=== PATIENT | female | born 1980 | race Caucasian/White ===

== ENCOUNTER 2016-11-18 17:09 | Emergency (ER) | payer OTHER ==
[~2016-11-18] VITALS: Ht 152.4 cm; Wt 90.7 kg
[~2016-11-18 17:09] MED LIST: HUMALOG SL100 UNITS/; IBUPROFEN600 M1 PO; LANTUS INS100 UNITS/ SUBQ; SYNTHROID0.125 M1 PO; SYNTHROID0.137 MG PO; SYNTHROID0.15 MG PO; XANAX2 M1 PO
[2016-11-18 17:17] VITALS: BP 140/93
--- NOTE | 2016-11-18 17:20 | NUR ---
PATIENT TO BED 8.
--- NOTE | 2016-11-18 17:26 | NUR ---
Patient presents with c/o SOB, hx of asthma, wheezes throughout, breathing is labored, pulse ox 99% on room air at this time. Denies CP, no N/V, no loose stools, c/o headache, anxiety, and hx of chronic back pain currently has some back pain. Patient sitting up in bed, with daughter at bedside
--- NOTE | 2016-11-18 17:33 | NUR ---
Patient being evaluated by physician at bedside.
[2016-11-18] MEDS ORDERED: predniSONE 20 MG TAB PO ONE (17:40)
[2016-11-18] MEDS ORDERED: IPRATROPIUM 0.02% 0.5 MG/2.5 ML NEBU INH ONE (17:40)
[2016-11-18] MEDS ORDERED: ALBUTEROL 0.083% 2.5 MG/3 ML NEBU INH ONE ×2 (17:40→18:15)
--- NOTE | 2016-11-18 18:13 | NUR ---
Notified Dr. Brewster that patients lungs have cleared up a bit, but still has wheezes throughout after breathing treatment administration.
--- NOTE | 2016-11-18 19:13 | NUR ---
report received from wilmer finch.
--- NOTE | 2016-11-18 19:47 | NUR ---
Patient discharged with v/s stable. Written and verbal after care instructions given and explained. Patient alert, oriented and verbalized understanding of instructions. Ambulatory with steady gait. All questions addressed prior to discharge. ID band removed. Patient advised to follow up with PMD. Rx of VENTOLIN, PREDNISONE, QVAR given. Patient educated on indication of medication including possible reaction and side effects. Opportunity to ask questions provided and answered.
[2016-11-18 19:48] VITALS: BP 140/78
== END 2016-11-18 19:47 | disposition home or self-care (01) ==
LOC: MED 17:09
DX: J45.901 Unspecified asthma with (acute) exacerbation (principal); E11.9 Type 2 diabetes mellitus without complications; Z79.4 Long term (current) use of insulin
CPT/HCPCS: 82948; 94640; 99284; J7512; J7613; J7644

== ENCOUNTER 2017-01-17 00:22 | Emergency (ER) | payer OTHER ==
[~2017-01-17] VITALS: Ht 165.1 cm; Wt 90.7 kg
[~2017-01-17 00:22] MED LIST changes: +ALPR2TAB1 PO; -HUMALOG SL100 UNITS/; +HUMSLIDE; -IBUPROFEN600 M1 PO; -LANTUS INS100 UNITS/ SUBQ; +LANTUS SUBQ; +LEVO0.155 PO; -SYNTHROID0.125 M1 PO; -SYNTHROID0.137 MG PO; -SYNTHROID0.15 MG PO; -XANAX2 M1 PO
[2017-01-17 00:52] VITALS: BP 116/69
--- NOTE | 2017-01-17 02:50 | NUR ---
PATIENT TO ER BED 3
--- NOTE | 2017-01-17 02:51 | NUR ---
PATIENT PRESENTS TO ED WITH LEFT FOOT, TOE PAIN X 1 DAY 8/10 PAIN. . PT DENIES N/V/D; SKIN IS PINK/WARM/DRY; AAOX4 WITH EVEN AND STEADY GAIT; LUNGS CLEAR BL; HR EVEN AND REGULAR; PT DENIES ANY FEVER, CP, SOB, OR COUGH AT THIS TIME; PATIENT STATES PAIN OF 8/10 AT THIS TIME; VSS; PATIENT POSITIONED FOR COMFORT; HOB ELEVATED; BEDRAILS UP X2; BED DOWN. ER MD MADE AWARE OF PT STATUS.
--- NOTE | 2017-01-17 03:03 | NUR ---
Dr. Tidwell evaluating patient at bedside.
[2017-01-17] MEDS ORDERED: KETOROLAC 30 MG/ML VIAL IM ONE (03:15)
[2017-01-17] MEDS ORDERED: ACETAMINOPHEN/CODEINE 300/30MG 1 TAB PO ONE (03:15)
[2017-01-17 03:44] VITALS: BP 117/72
--- NOTE | 2017-01-17 03:44 | NUR ---
Patient discharged with v/s stable. Written and verbal after care instructions given and explained. Patient alert, oriented and verbalized understanding of instructions. Ambulatory with steady gait. All questions addressed prior to discharge. ID band removed. Patient advised to follow up with PMD. Rx of NAPROSYN 500MG TAB given. Patient educated on indication of medication including possible reaction and side effects. Opportunity to ask questions provided and answered.
== END 2017-01-17 03:44 | disposition home or self-care (01) ==
LOC: MED 00:22
PROC: 3E033GC Introduction of Other Therapeutic Substance into Peripheral Vein, Percutaneous Approach (ICD-10-PCS; principal; 2017-01-17)
DX: S90.122A Contusion of left lesser toe(s) without damage to nail, initial encounter (principal); E11.9 Type 2 diabetes mellitus without complications; Z79.4 Long term (current) use of insulin; W22.09XA Striking against other stationary object, initial encounter; Y93.89 Activity, other specified; Y92.89 Other specified places as the place of occurrence of the external cause; Y99.8 Other external cause status
CPT/HCPCS: 73660; 96372; 99284; J1885

== ENCOUNTER 2017-02-04 17:02 | Inpatient (IN) | payer OTHER ==
[~2017-02-04] VITALS: Ht 165.1 cm; Wt 92.6 kg
[2017-02-04] MEDS: BLOOD GLUCOSE MONITORING 1 DEV DEV FS SCH ×8 (08:00→22:00)
[~2017-02-04 17:02] MED LIST changes: -ALPR2TAB1 PO; +HUMALOG SL100 UNITS/; -HUMSLIDE; +IBUPROFEN600 M1 PO; +LANTUS INS100 UNITS/ SUBQ; -LANTUS SUBQ; -LEVO0.155 PO; +SYNTHROID0.125 M1 PO; +SYNTHROID0.137 MG PO; +SYNTHROID0.15 MG PO; +XANAX2 M1 PO
[2017-02-04 17:44] VITALS: BP 97/39
--- NOTE | 2017-02-04 18:46 | NUR ---
Patient to bed 06.
--- NOTE | 2017-02-04 18:51 | NUR ---
PT CAME TO ER DUE TO VOMITING STARTING THIS MORNING AND HEADACHE/DIZZINESS AND BURNING IN CHEST,PT STATES IT ALL STARTED TODAY;PAIN SCALE OF 10/10;PT TOOK MOTRIN BUT DIDN'T HELP PT;HX OF DM;ASTHMA;PT STATES SHE FEELS WEEK;DENIES SOB/F/COUGH AT THIS TIME;AAOX4;HOB ELEVATED;NEEDS ATTENDED;SAFETY MEASURES DONE;MD AT BEDSIDE.
[2017-02-04] MEDS ORDERED: KETOROLAC 30 MG/ML VIAL IVP ONE (19:10)
[2017-02-04] MEDS ORDERED: INSULIN HUMAN REGULAR 100 UNITS/ML 10 ML VIAL IVP ONE (19:10)
[2017-02-04] MEDS ORDERED: PANTOPRAZOLE 40 MG INJ VIAL IVP ONE (19:10)
[2017-02-04] MEDS ORDERED: NACL 0.9% 2,000 ML IV ONE (19:10)
--- NOTE | 2017-02-04 19:16 | NUR ---
REPORT GIVEN TO ABHIJIT WISE.
[2017-02-04] MEDS ORDERED: ONDANSETRON 4 MG/2 ML VIAL IVP ONE (19:35)
[2017-02-04] MEDS ORDERED: INSULIN LISPRO SLIDING SCALE 100 UNITS/ML VIAL SUBQ PRN (20:15)
[2017-02-04] MEDS ORDERED: POTASSIUM CHLORIDE 10 MEQ TABER PO PRN (20:15)
[2017-02-04] MEDS ORDERED: GLUCAGON 1 MG VIAL IVP PRN (20:15)
[2017-02-04] MEDS ORDERED: MORPHINE SULFATE 2 MG/ML SYR IVP ONE (20:35)
--- NOTE | 2017-02-04 20:35 | NUR ---
Pt report given to MOE LACEY. Transfer of care at this time.
--- NOTE | 2017-02-04 20:35 | NUR ---
Patient will be admitted to care of DR JACKSON. Admited to TELE 111A. Will go to rooM 111A. Belongings list completed. Report to MOE LACEY .
[2017-02-04 21:00] VITALS: BP 122/77
--- NOTE | 2017-02-04 21:00 | NUR ---
Admitted from ED, with chief complaint of ABDOMINAL PAIN, CHEST BURNING, WEAKNESS, VOMITING, GADRNER X 1D. 36 y/o ,Female, Awake, alert and Oriented, Cooperative. at bedside. Initial assessment done. Vital signs checked. Pt complaining of burning on her chest. Will notify MD. Pt asking for water to drink. Pt informed that her blood sugar will be checked every 4hrs. Pt verbalized understanding and said to check it later at 2300. Pt oriented to call light, bed, phone,television, bathroom, smoking policy, visiting hours, procedures, ID bracelet on. Belongings list checked. MRSA swab collected.
[2017-02-04] MEDS: NACL 0.9% 1,000 ML IV SCH (21:30)
[2017-02-04] MEDS ORDERED: INSULIN HUMAN REGULAR 100 UNITS in NACL 0.9% 100 ML IV SCH (21:30)
--- NOTE | 2017-02-04 21:30 | NUR ---
INFORMED DR REDDY REGARDING PT'S K LEVEL AND SHE SAID CONTINUE CHECKING THE BLOOD SUGAR AND GIVE COVERAGE. THERE'S AM LABS ORDER. ASKED HER IF SHE'S AWARE OF PT'S ABG RESULTS. DR REDDY SAID "NO". RELAYED THE ABG RESULTS AND SHE SAID PT NEEDS TO GO TO ICU AND START W/ INSULIN DRIP. WILL INFORM CHARGE NURSE AND STAFF INTERPRETER.
--- NOTE | 2017-02-04 21:40 | NUR ---
REPORT GIVEN TO ABHIJIT CASTELLANOS FROM ICU.
--- NOTE | 2017-02-04 22:00 | NUR ---
PT TRANSFERRED VIA BED TO ICU PER MD ORDER.
[2017-02-04 22:15] VITALS: BP 122/65
--- NOTE | 2017-02-04 22:15 | NUR ---
RECEIVED PT FROM TELEMETRY UNIT AWAKE ALERT AND ORIENTED.ST ON MONITOR.ON ROOM AIR.02SAT 100%.NO SOB NOTED.PIV TO RT AC G22 INTACT.INFUSING NS AT 150ML/HR ORDERED.SKIN INTACT. PT ABLE TO AMBULATE.DENIES PAIN AT THIS TIME.WILL CONTINUE TO MONITOR PT. Addendum: 02/04/17 at 2330 by Annie Comer RN BS 212 AT THIS TIME
--- NOTE | 2017-02-04 22:30 | NUR ---
PTS AT BEDSIDE.PT REFUSING INSULIN DRIP.EXPLAINED TO PT AND THE EFFECT OF REFUSING INSULIN DRIP,QUESTIONS ANSWERED.REASSURED PT THAT CEMETERY MANAGER WILL MONITOR BLOOD SUGAR Q 1HR WHEN ON DRIP,PT STILL REFUSING. PHONE CALL MADE TO DR MAKI.NOTIFIED THAT PT REFUSING DRIP.NEW ORDERS RECEIVED.CARRIED OUT.
[2017-02-04] MEDS: ALPRAZolam 0.5 MG TAB PO PRN (22:53)
[2017-02-04] MEDS ORDERED: INSULIN DETEMIR 100 UNITS/ML 10 ML VIAL SUBQ ONE (23:10)
[2017-02-04] MEDS ORDERED: INSULIN DETEMIR 100 UNITS/ML 10 ML VIAL SUBQ SCH (23:20)
[2017-02-04] MEDS ORDERED: DEXTROSE 50% 50 ML SYR IVP PRN (23:35)
[2017-02-04] MEDS: ONDANSETRON 4 MG/2 ML VIAL IVP PRN (23:42)
--- NOTE | 2017-02-04 23:45 | NUR ---
PT VOMITED WATERY CONTENT,SMALL AMT.ZOFRAN GIVEN ORDERED
[2017-02-05] VITALS (12 sets, daily range): BP systolic 102–124; BP diastolic 54–84
--- NOTE | 2017-02-05 | NUR ---
BS 306; INSULIN COVERAGE ADMINISTERED ORDERED.
[2017-02-05] MEDS: INSULIN LISPRO SLIDING SCALE 100 UNITS/ML VIAL SUBQ PRN ×3 (00:23→04:06)
[2017-02-05] MEDS: MORPHINE SULFATE 2 MG/ML SYR IVP PRN ×2 (01:26→21:02)
[2017-02-05] MEDS: BLOOD GLUCOSE MONITORING 1 DEV DEV FS SCH ×19 (02:00→23:01)
--- NOTE | 2017-02-05 02:00 | NUR ---
BS 245; INSULIN SLIDING GIVEN ORDERED.PT AWAKE, NO SOB NOTED ON ROOM AIR.PIV INTACT.NO C/O PAIN AT THIS TIME
[2017-02-05] MEDS: NACL 0.9% 1,000 ML IV SCH (03:43)
--- NOTE | 2017-02-05 04:05 | NUR ---
PT C/O NAUSEA;ZOFRAN GIVEN ORDERED.BS 195;INSULIN GIVEN ORDERED. WILL CONTINUE TO MONITOR PT
[2017-02-05] MEDS: ONDANSETRON 4 MG/2 ML VIAL IVP PRN ×5 (04:09→19:59)
--- NOTE | 2017-02-05 05:50 | NUR ---
PT UP TO TOILET.VOIDED FREELY YELLOW URINE.STEADY GAIT. NO C/O PAIN AT THIS TIME.TOLERATING ROOM AIR.NO SOB NOTED.
--- NOTE | 2017-02-05 06:00 | NUR ---
BS 128;NO INSULIN COVERAGE REQUIRED.DUE MEDS GIVEN ORDERED.NO C/O PAIN MADE.NO C/O N/V AT THIS TIME
[2017-02-05] MEDS: LEVOTHYROXINE 0.075 MG TAB PO SCH (06:04)
--- NOTE | 2017-02-05 07:00 | NUR ---
RECEIVED REPORT FROM ABHIJIT GARCIA. PT IS A/O X4, ROOM AIR. IV TO RIGHT AC #22, PATENT AND INTACT. SKIN IS INTACT. PT IS CURRENTLY SINUS TACHYCARDIA ON MONITOR. SAFETY PRECAUTION IN PLACE. BED IN LOWEST POSITION, SIDE RAILS UP. CALL LIGHT WITHIN REACH. PRESENT AT BEDSIDE. WILL CONTINUE TO MONITOR.
[2017-02-05] MEDS ORDERED: NACL 0.9% 1,000 ML IV SCH ×2 (08:00→09:35)
--- NOTE | 2017-02-05 08:09 | NUR ---
PATIENT HAS BEEN SCREENED AND CATEGORIZED HIGH NUTRITION RISK. PATIENT WILL BE SEEN WITHIN 1-2 DAYS OF ADMISSION. 02/05/17-02/06/[address]
[2017-02-05] MEDS: INSULIN DETEMIR 100 UNITS/ML 10 ML VIAL SUBQ SCH (08:26)
[2017-02-05] MEDS: ENOXAPARIN 40 MG/0.4 ML SYR SUBQ SCH (08:29)
--- NOTE | 2017-02-05 08:32 | NUR ---
PT C/O NAUSEA. ADMINISTERED ZOFRAN ORDERED PRN. PT TOLERATED ALL MEDS WELL. WILL CONTINUE TO MONITOR FOR EFFECTIVENESS.
--- NOTE | 2017-02-05 09:02 | NUR ---
ANION GAP STILL HIGH, 24. PAGED DR. CHEEMA TO UPDATE. AWAITING CALL BACK
--- NOTE | 2017-02-05 09:26 | NUR ---
PAGED DR. MONTALVO REGARDING CLARIFICATION OF ORDER. INFORMED THAT DR. ECHEVERRIA IS BOAT DRIVER. WILL AWAIT CALL BACK.
--- NOTE | 2017-02-05 09:30 | NUR ---
RECEIVED CALL BACK FROM DR. ECHEVERRIA. NEW ORDERS RECEIVED.
[2017-02-05] MEDS ORDERED: INSULIN HUMAN REGULAR 100 UNITS in NACL 0.9% 100 ML IV SCH (09:35)
[2017-02-05] MEDS ORDERED: DEXTROSE 50% 50 ML SYR IVP PRN (09:55)
[2017-02-05] MEDS ORDERED: BLOOD GLUCOSE MONITORING 1 DEV DEV FS SCH ×2 (10:00)
--- NOTE | 2017-02-05 10:33 | NUR ---
DR. ECHEVERRIA IN TO SEE PATIENT, WILL FOLLOWUP ON ORDERS.
[2017-02-05] MEDS: DEXT 5% /NACL 0.9% 1,000 ML IV SCH ×2 (11:02→21:06)
[2017-02-05] MEDS: INSULIN HUMAN REGULAR 100 UNITS in NACL 0.9% 100 ML IV SCH ×7 (11:06→18:58)
--- NOTE | 2017-02-05 11:30 | NUR ---
PAGED DR. ECHEVERRIA REGARDING LOW MAGNESIUM: 1.6. NEW ORDERS RECEIVED.
[2017-02-05] MEDS ORDERED: MAGNESIUM OXIDE 400 MG TAB PO SCH (11:45)
[2017-02-05] MEDS: ALPRAZolam 0.5 MG TAB PO PRN (12:19)
[2017-02-05] MEDS: ACETAMINOPHEN 325 MG TAB PO PRN ×2 (12:19→16:14)
--- NOTE | 2017-02-05 12:24 | NUR ---
PT C/O HEADACHE, 10/10, ACHING AND CONTINUOUS ACCOMPANIED BY NAUSEA. ADMINISTERED TYLENOL AND ZOFRAN ORDERED PRN. PT TOLERATED WELL. PRESENT AT BEDSIDE. CALL LIGHT WITHIN REACH. WILL REASSESS.
--- NOTE | 2017-02-05 12:30 | NUR ---
PT C/O ANXIETY. ADMINISTERED XANAX ORDERED PRN. PT TOLERATED WELL. WILL CONTINUE TO MONITOR
--- NOTE | 2017-02-05 14:06 | NUR ---
CM NOTE INITIAL REVIEW FAXED TO [facility] / FAX# [phone], ATTN: JABARI #[phone]
--- NOTE | 2017-02-05 14:47 | NUR ---
PT SLEEPING. AROUSABLE. NO C/O PAIN. WILL CONTINUE TO MONITOR FOR CHANGE.
--- NOTE | 2017-02-05 16:29 | NUR ---
PT C/O HEADACHE, ACHING AND CONTINUOUS, 10/10, ACCOMPANIED BY NAUSEA. ADMINISTERED TYLENOL AND ZOFRAN ORDERED PRN. PT TOLERATED WELL. WILL REASSESS.
--- NOTE | 2017-02-05 17:08 | NUR ---
PAGED DR. ECHEVERRIA ABOUT CHANGE IN PAIN MEDICATION. PT REQUESTED STRONGER PAIN MEDICATION. AWAITING CALL BACK FROM
--- NOTE | 2017-02-05 17:15 | NUR ---
RECEIVED CALLBACK FROM DR. CHEEMA. NEW ORDERS RECEIVED. WILL CONTINUE TO MONITOR
[2017-02-05] MEDS: HYDROcodone/APAP 5/325 MG 1 TAB TAB PO PRN (18:04)
--- NOTE | 2017-02-05 19:23 | NUR ---
ENDORSED CARE TO ABHIJIT MAJOR. PT IN STABLE CONDITION.
--- NOTE | 2017-02-05 19:44 | NUR ---
RECEIVED REPORT FROM JOSE LACEY AND GUILLERMO RN. PATIENT IS AWAKE, ALERT, AND RESTING IN BED WITH AT BEDSIDE. NO SIGNS OF SOB OR ACUTE DISTRESS NOTED. VITAL SIGNS ARE STABLE WITH NO REPORTS OF PAIN AT THIS TIME. BREATH SOUNDS ARE CLEAR UPON AUSCULTATION AND BOWEL SOUNDS ARE HYPOACTIVE. THERE IS A #22 IN THE RIGHT AC WITH D5NS AT 100 ML/HR AND INSULIN DRIP AT 1 UNIT/HOUR. SITE IS DRY, INTACT, AND ASYMPTOMATIC. SCDS ARE IN PLACE FOR VTE PROPHYLAXIS. EXPLAINED PLAN OF CARE TO PATIENT AND TO INCLUDE SCHEDULED MEDICATION ADMINISTRATION, VITALS, AND MONITORING. PATIENT AND VERBALIZED UNDERSTANDING. HOB AT 30 DEGREES WITH BED IN LOW POSITION. WILL CONTINUE TO MONITOR PATIENT.
--- NOTE | 2017-02-05 19:59 | NUR ---
PATIENT COMPLAINING ABOUT NAUSEA. ADMINISTERED ZOFRAN 4MG IVP PER DOCTOR'S ORDERS. TOLERATED MEDICATION ADMINISTRATION WELL WITH NO SIGNS OF SOB OR DISTRESS NOTED. PATIENT'S NEEDS MET AT THIS TIME. CALL LIGHT WITHIN REACH. WILL CONTINUE TO MONITOR PATIENT.
--- NOTE | 2017-02-05 20:18 | NUR ---
TOW DRIVER AT BEDSIDE FOR SCHEDULED LAB DRAW.
--- NOTE | 2017-02-05 21:58 | NUR ---
ROUNDED ON PATIENT. PATIENT RESTING COMFORTABLY EATING LIGHT SNACK. AT BEDSIDE. WILL CONTINUE TO MONITOR PATIENT.
--- NOTE | 2017-02-05 22:28 | NUR ---
PATIENT'S FATHER LAMBERTO AND JONE VISITING AT BEDSIDE. NO SIGNS OF DISTRESS NOTED. CONTINUE TO MONITOR.
--- NOTE | 2017-02-05 22:35 | NUR ---
PATIENT'S FATHER LAMBERTO LEFT UNIT.
--- NOTE | 2017-02-05 23:55 | NUR ---
ASSISTED PATIENT TO BATHROOM TO VOID. NO SIGNS OF SOB OR DISTRESS NOTED.
[2017-02-06] VITALS (7 sets, daily range): BP systolic 110–124; BP diastolic 58–79
--- NOTE | 2017-02-06 | NUR ---
PATIENT RESTING COMFORTABLY IN BED. EXPLAINED INDICATIONS AND BENEFITS OF SCDS FOR VTE PROPHYLAXIS. PATIENT VERBALIZED UNDERSTANDING. OFFERED TO REAPPLY SCDS, BUT PATIENT STATED SHE DID NOT WANT TO WEAR THEM AT THIS TIME AND IT WAS OK TO REAPPLY LATER. WILL CONTINUE TO MONITOR PATIENT.
[2017-02-06] MEDS: BLOOD GLUCOSE MONITORING 1 DEV DEV FS SCH ×9 (00:04→08:19)
[2017-02-06] MEDS: ONDANSETRON 4 MG/2 ML VIAL IVP PRN ×3 (00:05→10:02)
--- NOTE | 2017-02-06 00:09 | NUR ---
MEDICAL LOGISTICS SPECIALIST AT BEDSIDE FOR SCHEDULED LAB DRAW. NO SIGNS OF DISTRESS NOTED. WILL CONTINUE TO MONITOR.
--- NOTE | 2017-02-06 00:29 | NUR ---
PATIENT'S JONE LEFT UNIT.
--- NOTE | 2017-02-06 00:53 | NUR ---
PATIENT'S JONE AT BEDSIDE.
--- NOTE | 2017-02-06 01:10 | NUR ---
PATIENT C/O ANXIETY AND IS UNABLE TO REST. WILL ADMINISTER XANAX ORDERED. ENCOURAGED JONE TO LET PATIENT REST, BUT PATIENT BECAME ANXIOUS STATING "HE CAN'T LEAVE. HE HAS TO BE HERE WITH ME." CHARGE NURSE JASMIN LACEY MADE AWARE. CONTINUE TO MONITOR.
[2017-02-06] MEDS: ALPRAZolam 0.5 MG TAB PO PRN (01:13)
--- NOTE | 2017-02-06 01:15 | NUR ---
PATIENT ASKED TO HAVE SCDS APPLIED. SCDS ARE IN PLACE. NO SIGNS OF DISTRESS NOTED. CALL LIGHT WITHIN REACH. WILL CONTINUE TO MONITOR.
--- NOTE | 2017-02-06 02:30 | NUR ---
PATIENT'S JONE LEFT UNIT. PATIENT RESTING COMFORTABLY IN BED WITH NO SIGNS OF DISTRESS OR SOB NOTED. HOB AT 30 DEGREES WITH BED IN LOWEST POSITION. CALL LIGHT WITHIN REACH. WILL CONTINUE TO MONITOR PATIENT.
--- NOTE | 2017-02-06 04:00 | NUR ---
HEAVY EQUIPMENT SUPERVISOR AT BEDSIDE FOR SCHEDULED LAB DRAW.
[2017-02-06] MEDS: MORPHINE SULFATE 2 MG/ML SYR IVP PRN (04:31)
--- NOTE | 2017-02-06 04:45 | NUR ---
PATIENT REQUESTED SNACK. PROVIDED PATIENT WITH 1 CUP OF VANILLA PUDDING, 1 PACKET OF NAYE CRACKERS, AND 1 BOX OF APPLE JUICE. TOLERATED WELL. PATIENT'S NEEDS MET AT THIS TIME. CALL LIGHT WITHIN REACH. CONTINUE TO MONITOR.
[2017-02-06] MEDS: LEVOTHYROXINE 0.075 MG TAB PO SCH (05:53)
--- NOTE | 2017-02-06 05:56 | NUR ---
TOLERATED DUE MEDICATION. NO SIGNS OF SOB OR DISCOMFORT NOTED. PATIENT'S NEEDS MET AT THIS TIME. CALL LIGHT WITHIN REACH. WILL CONTINUE TO MONITOR PATIENT.
[2017-02-06] MEDS: DEXT 5% /NACL 0.9% 1,000 ML IV SCH (06:58)
--- NOTE | 2017-02-06 07:11 | NUR ---
ANION GAP AND BICARBONATE ARE WNL AND INSULIN DRIP PUT ON HOLD PER DR. ECHEVERRIA'S ADDITIONAL ORDERS. CHARGE NURSE AMANUEL LACEY AND CHARGE NURSE JASMIN ARE AWARE. PATIENT IN STABLE CONDITION. ALL NEEDS ATTENDED TO DURING SHIFT. ENDORSED CONTINUITY OF CARE TO AMANUEL LACEY.
--- NOTE | 2017-02-06 07:34 | NUR ---
RECEIVED REPORT FROM ABHIJIT MAJOR. PT IS ALERT AND ORIENTED X4, ROOM AIR. IV TO RIGHT AC #22, PATENT AND INTACT. SKIN IS INTACT. PT IS CURRENTLY SINUS RHYTHM ON MONITOR. SAFETY PRECAUTION IN PLACE. BED IN LOWEST POSITION, SIDE RAILS UP. CALL LIGHT WITHIN REACH. WILL CONTINUE TO MONITOR.
[2017-02-06] MEDS ORDERED: ALPRAZolam 0.5 MG TAB PO PRN (08:09)
--- NOTE | 2017-02-06 08:15 | NUR ---
PAGED DR. CHEEMA REGARDING BG AND INSULIN. AWAITING CALL BACK
--- NOTE | 2017-02-06 08:30 | NUR ---
CALL BACK RECEIVED FROM DR. ECHEVERRIA. NEW ORDERS RECEIVED.
[2017-02-06] MEDS ORDERED: NACL 0.9% 1,000 ML IV SCH ×2 (08:35→08:50)
[2017-02-06] MEDS ORDERED: INSULIN LISPRO SLIDING SCALE 100 UNITS/ML VIAL SUBQ PRN (08:50)
[2017-02-06] MEDS ORDERED: DEXTROSE 50% 50 ML SYR IVP PRN (08:50)
[2017-02-06] MEDS: ENOXAPARIN 40 MG/0.4 ML SYR SUBQ SCH (09:20)
[2017-02-06] MEDS: INSULIN DETEMIR 100 UNITS/ML 10 ML VIAL SUBQ SCH (09:24)
--- NOTE | 2017-02-06 10:00 | NUR ---
BLOOD NOTED AT IV SITE. IV D/C AND REPLACED ONTO LEFT FOREARM. INTACT AND PATENT.
--- NOTE | 2017-02-06 10:20 | NUR ---
CALL FROM LAB RECEIVED. POSITIVE FOR MRSA IN NARES. HOUSE PROTOCOL INITIATED. PT EDUCATION GIVEN
[2017-02-06] MEDS ORDERED: BLOOD GLUCOSE MONITORING 1 DEV DEV FS SCH (11:30)
[2017-02-06] MEDS: HYDROcodone/APAP 5/325 MG 1 TAB TAB PO PRN (11:47)
--- NOTE | 2017-02-06 11:47 | NUR ---
ORDERS RECEIVED FROM DR. ECHEVERRIA TO DISCHARGE PT HOME WITH PRESCRIPTION OF ORAL ABX
[2017-02-06] MEDS ORDERED: KEFLEX250 MG PO ×2 (12:41→12:44)
[2017-02-06] MEDS ORDERED: BACTROBAN 2%20 MG/GM NS (12:48)
[2017-02-06] MEDS ORDERED: CHLORHEXIDINE1 EACH TP (12:52)
[2017-02-06] MEDS ORDERED: MUPIROCIN 2% OINT 22 GM TUBE TP SCH (13:00)
[2017-02-06] MEDS ORDERED: CHLORHEXADINE GLUC 2% CLOTH TP SCH (13:00)
--- NOTE | 2017-02-06 13:38 | NUR ---
02/06/17 RD INITIAL ASSESSMENT COMPLETED PLEASE REFER TO NUTRITION ASSESSMENT UNDER CARE ACTIVITY FOR ESTIMATED NUTRITIONAL NEEDS. RD RECOMMENDATIONS: 1. CONTINUE ON CCHO 60 GM DIET TOLERATED. 2. ENCOURAGE INCREASED PO INTAKE. 3. RD PROVIDED DM DIET EDUCATION. 4. RD WILL F/U 3-5 DAYS; MODERATE RISK. BERNARD MILAN RD
--- NOTE | 2017-02-06 13:53 | NUR ---
CM NOTE CONCURRENT REVIEW FAXED TO [facility] / FAX# [phone], ATTN: JABARI #[phone]
--- NOTE | 2017-02-06 14:15 | NUR ---
PT DISCHARGED WITH FAMILY AT 1415. A/O X4. PERIPHERAL IV DISCONTINUED. NO C/O PAIN OR DISCOMFORT. NO S/SX OF ACUTE DISTRESS NOTED. DISCHARGE INSTRUCTION GIVEN TO PT AND . PT AND VERBALIZE UNDERSTANDING. INSTRUCTION GIVEN FOR BACTROBAN AND CHLORHEXIDINE WIPES. PT AND VERBALIZE UNDERSTANDING. WALKED WITH PT AND FAMILY TO LOBBY. PT HAS STEADY GAIT. ALL PERSONAL BELONGINGS WITH PT. PT IN STABLE CONDITION.
--- NOTE | 2017-02-10 07:24 | NUR ---
PATIENT'S BLOOD SUGAR IS 142, NOT 1472, ON 02/06/17 AT 06:53. UNABLE TO EDIT IN eMAR. PUNCH FINISHER JAZMINE AND PHARMACIST HAIM ARE AWARE. CHARGE NURSE AMANUEL RN IS AWARE.
== END 2017-02-06 14:20 | disposition home or self-care (01) | DRG 420 ==
LOC: MED 17:02 → MTU 20:19 → MIC 21:57
PROVIDERS: ADMIT Hospitalist; ATTEND Hospitalist
DX: E13.10 Other specified diabetes mellitus with ketoacidosis without coma (principal); N39.0 Urinary tract infection, site not specified; E87.5 Hyperkalemia; Z79.4 Long term (current) use of insulin

== ENCOUNTER 2017-02-12 02:16 | Emergency (ER) | payer OTHER ==
[~2017-02-12] VITALS: Ht 165.1 cm; Wt 92.5 kg
[~2017-02-12 02:16] MED LIST changes: +BACTROBAN 2%20 MG/GM NS; +CHLORHEXIDINE1 EACH TP; +KEFLEX250 MG PO
[2017-02-12 02:28] VITALS: BP 138/72
--- NOTE | 2017-02-12 02:36 | NUR ---
PT TAKEN TO BED 5
--- NOTE | 2017-02-12 02:36 | NUR ---
Dr. Brewster evaluating patient at bedside.
--- NOTE | 2017-02-12 02:47 | NUR ---
36Y F BIB FAMILY C/O OF LT ARM PAIN. WAS D/C FROM THIS FACILTY 02/06/17. NO DISTRESS NOTED. CLAIMS PAIN IS 8/10 IN SCALE.
--- NOTE | 2017-02-12 02:51 | NUR ---
Patient discharged with v/s stable. Written and verbal after care instructions given and explained. Patient verbalized understanding. Ambulatory with steady gait. All questions addressed prior to discharge. Advised to follow up with PMD.
[2017-02-12 02:52] VITALS: BP 138/72
== END 2017-02-12 02:51 | disposition home or self-care (01) ==
LOC: MED 02:16
DX: I80.8 Phlebitis and thrombophlebitis of other sites (principal); E11.9 Type 2 diabetes mellitus without complications; E03.9 Hypothyroidism, unspecified

== ENCOUNTER 2017-06-09 18:18 | Emergency (ER) | payer SELFPAY ==
[~2017-06-09 18:18] MED LIST changes: +ALPR2TAB1 PO; +BACTO NS; -BACTROBAN 2%20 MG/GM NS; +CEPH250C16 PO; +CHLO1TOW TP; -CHLORHEXIDINE1 EACH TP; -HUMALOG SL100 UNITS/; +HUMSLIDE; -IBUPROFEN600 M1 PO; -KEFLEX250 MG PO; -LANTUS INS100 UNITS/ SUBQ; +LANTUS SUBQ; +LEVO0.155 PO; -SYNTHROID0.125 M1 PO; -SYNTHROID0.137 MG PO; -SYNTHROID0.15 MG PO; -XANAX2 M1 PO
== END 2017-06-09 18:20 | disposition left against medical advice (07) ==
LOC: MED 18:18
DX: Z53.21 Procedure and treatment not carried out due to patient leaving prior to being seen by health care provider (principal)

== ENCOUNTER 2017-06-09 19:45 | Emergency (ER) | payer OTHER ==
[~2017-06-09] VITALS: Ht 165.1 cm; Wt 90.7 kg
[2017-06-09 19:48] VITALS: BP 124/60
--- NOTE | 2017-06-09 20:18 | NUR ---
PT RETURN FROM XRAY TO LOBBY
--- NOTE | 2017-06-09 21:51 | NUR ---
PT TAKEN TO BED 3
--- NOTE | 2017-06-09 21:54 | NUR ---
36 Y/O F W/C/O DIFFICULTY BREATHING X 10 DAYS. PT STATES WAS SEEN BY [place] WITH ANTIBIOTICS. PT STATES HIS COUGH GETTING WORSE C/O BODY ACHES, AND HEADACHES, DENIES NIGHT SWEATS OR BLOOD IN SPUTUM.SLIGHTLY BILATERAL WHEEZEES NOTED, O2 SAT 99 % RA. PT ALSO STATES HAS GENERAL WEAKNESS, MUSCLE RELAXANT GIVEN BY MOTHER TODAY IN MORNING FOR THIS C/O. HX. ASTHMA.ER MD MADE AWARE.
[2017-06-09] MEDS ORDERED: ALBUTEROL SULFATE/IPRATROPIU 3 ML SOL IH ONE (22:10)
--- NOTE | 2017-06-09 22:21 | NUR ---
RT AT BEDSIDE ADMINISTERING BREATHING [place].
--- NOTE | 2017-06-09 22:28 | NUR ---
Dr. Tidwell evaluating patient at bedside.
[2017-06-09] MEDS ORDERED: ACETAMIN/CODEINE 120/12MG-5ML 5 ML UDC PO ONE (22:35)
[2017-06-09] MEDS ORDERED: predniSONE 20 MG TAB PO ONE (22:35)
[2017-06-09 23:10] VITALS: BP 92/62
--- NOTE | 2017-06-09 23:10 | NUR ---
Patient discharged with v/s stable. Written and verbal after care instructions given and explained. Patient alert, oriented and verbalized understanding of instructions. Ambulatory with steady gait. All questions addressed prior to discharge. ID band removed. Patient advised to follow up with PMD. Rx of [place], Prednisone, and Albuterol inhaler given. Patient educated on indication of medication including possible reaction and side effects. Opportunity to ask questions provided and answered.
== END 2017-06-09 23:10 | disposition home or self-care (01) ==
LOC: MED 19:45
DX: J20.9 Acute bronchitis, unspecified (principal); J45.901 Unspecified asthma with (acute) exacerbation; E11.9 Type 2 diabetes mellitus without complications
CPT/HCPCS: 71010; 94640; 99283; J7512; J7620

== ENCOUNTER 2017-09-24 16:02 | Emergency (ER) | payer OTHER ==
[~2017-09-24] VITALS: Ht 165.1 cm; Wt 93.4 kg
[2017-09-24 16:07] VITALS: BP 105/68
[2017-09-24] MEDS ORDERED: NACL 0.9% 500 ML IV ONE (16:29)
[2017-09-24] MEDS ORDERED: PANTOPRAZOLE 40 MG INJ VIAL IVP ONE (16:30)
[2017-09-24] MEDS ORDERED: ONDANSETRON 4 MG/2 ML VIAL IVP ONE (16:30)
--- NOTE | 2017-09-24 16:40 | NUR ---
36 F BIB SELF W/C/O HIGH BLOOD SUGAR >500 WITH N/V; PT STS SHE TOOK 30 UNITS OF INSULIN IN FLIGHT REFUELING CRAFTSMAN DUE TO "HIGH BLOOD SUGAR READING AT HOME"; PT APPEARS ANXIOUS AND RESTLESS; PT IS AOX4, WITH STEADY GAIT; RR ARE EVEN AND UNLABORED; ER MD AWARE OF PT STATUS; NAD; WILL CONTINUE TO MONTIOR.
[2017-09-24 16:46] LABS: BASOPHILS # (AUTO) 0.3 K/uL (0.00-0.22); BASOPHILS % (AUTO) 3.8 % (0.0-2.0); EOSINOPHILS # (AUTO) 0.3 K/uL (0-0.4); HEMATOCRIT 36.7 % (36-48); HEMOGLOBIN 11.6 g/dL (12.0-16.0); LYMPHOCYTES # (AUTO) 1.4 K/uL (2.5-16.5); LYMPHOCYTES % (AUTO) 20.4 % (20.5-51.1); MEAN CORPUSCULAR HEMOGLOBIN 26 pg (27-31); MEAN CORPUSCULAR HGB CONC 32 g/dL (33-37); MEAN CORPUSCULAR VOLUME 82 fL (80-94); MONOCYTES # (AUTO) 0.3 K/uL (0.8-1.0); MONOCYTES % (AUTO) 4.9 % (1.7-9.3); NEUTROPHILS # (AUTO) 4.7 K/uL (1.8-7.7); NEUTROPHILS % (AUTO) 66.9 % (42.2-75.2); PLATELET COUNT (AUTO) 218 K/uL (140-450); RED BLOOD CELL COUNT(AUTO) 4.49 MIL/uL (4.20-5.40); RED CELL DISTRIBUTION WIDTH 13.6 % (11.6-13.7)
[2017-09-24 17:06] LABS: ANION GAP 8.8 (8-16); CARBON DIOXIDE 27.9 mmol/L (21-32); CHLORIDE 107 mmol/L (98-107); CREATININE 0.7 mg/dL (0.6-1.3); GFR ARICAN-AMERICAN 123 mL/min (>90); GLUCOSE 136 mg/dL (74-106); POTASSIUM 3.7 mmol/L (3.5-5.1); SODIUM SERUM 140 mmol/L (136-145); UREA NITROGEN, BLOOD 14 mg/dL (7-18)
[2017-09-24 17:08] LABS: ACETONE, SERUM NEGATIVE (NEGATIVE)
[2017-09-24 17:11] LABS: ALBUMIN 3.1 g/dL (3.4-5.0); ASPARTATE AMINOTRANSFERASE 8 U/L (15-37); TOTAL BILIRUBIN 0.2 mg/dL (0.0-1.0)
[2017-09-24 17:57] VITALS: BP 116/69
--- NOTE | 2017-09-24 17:57 | NUR ---
Patient discharged with v/s stable. Written and verbal after care instructions given and explained. Patient alert, oriented and verbalized understanding of instructions. Ambulatory with steady gait. All questions addressed prior to discharge. ID band removed. Patient advised to follow up with PMD. Rx of OMIPRAZOLE & LEGLAN given. Patient educated on indication of medication including possible reaction and side effects. Opportunity to ask questions provided and answered.
== END 2017-09-24 17:57 | disposition home or self-care (01) ==
LOC: MED 16:02
DX: Z76.0 Encounter for issue of repeat prescription (principal); E11.9 Type 2 diabetes mellitus without complications; J45.909 Unspecified asthma, uncomplicated; Z79.4 Long term (current) use of insulin; Z79.899 Other long term (current) drug therapy
CPT/HCPCS: 36415; 80053; 82009; 82948; 85025; 96361; 96374; 96375; 99284; C9113; J2405; J7030

== ENCOUNTER 2017-10-15 20:44 | Emergency (ER) | payer OTHER ==
[~2017-10-15] VITALS: Ht 165.1 cm; Wt 100.8 kg
[2017-10-15 21:03] VITALS: BP 119/68
--- NOTE | 2017-10-16 00:55 | NUR ---
PT AMB TO ER BED 11
--- NOTE | 2017-10-16 01:05 | NUR ---
36 Y/O F W/C/O ACID REFLUX, HEADACHES, NAUSEATED X 3 DAYS. MED HX DM, ACID REFLEX, ASTHMA, HYPOTHYROID. ER MD MADE AWARE.
--- NOTE | 2017-10-16 01:10 | NUR ---
GONZALEZ MOYER AT BEDSIDE EVALUATING PT.
[2017-10-16] MEDS ORDERED: PANTOPRAZOLE 40 MG INJ VIAL IVP ONE (01:15)
[2017-10-16 01:30] LABS: BASOPHILS # (AUTO) 0.3 K/uL (0.00-0.22); BASOPHILS % (AUTO) 4.6 % (0.0-2.0); EOSINOPHILS # (AUTO) 0.5 K/uL (0-0.4); EOSINOPHILS % (AUTO) 7.4 % (0.0-4.0); HEMATOCRIT 36.7 % (36-48); HEMOGLOBIN 11.5 g/dL (12.0-16.0); LYMPHOCYTES # (AUTO) 2.3 K/uL (2.5-16.5); LYMPHOCYTES % (AUTO) 32.3 % (20.5-51.1); MEAN CORPUSCULAR HEMOGLOBIN 25 pg (27-31); MEAN CORPUSCULAR HGB CONC 31 g/dL (33-37); MEAN CORPUSCULAR VOLUME 81 fL (80-94); MONOCYTES # (AUTO) 0.4 K/uL (0.8-1.0); MONOCYTES % (AUTO) 5.9 % (1.7-9.3); NEUTROPHILS # (AUTO) 3.7 K/uL (1.8-7.7); NEUTROPHILS % (AUTO) 49.8 % (42.2-75.2); PLATELET COUNT (AUTO) 247 K/uL (140-450); RED BLOOD CELL COUNT(AUTO) 4.55 MIL/uL (4.20-5.40); RED CELL DISTRIBUTION WIDTH 14.5 % (11.6-13.7); WHITE BLOOD COUNT (AUTO) 7.2 K/uL (4.8-10.8)
[2017-10-16 01:37] LABS: APPEARANCE,URINE CLEAR (CLEAR); BILIRUBIN,URINE NEGATIVE (NEGATIVE); BLOOD, URINE NEGATIVE (NEGATIVE); COLOR,URINE YELLOW (YELLOW); LEUKOCYTE ESTERASE ,URINE NEGATIVE (NEGATIVE); NITRITE, URINE POSITIVE (NEGATIVE); UGLUCOSE NEGATIVE (NEGATIVE)
[2017-10-16 01:40] LABS: ACETONE, SERUM NEGATIVE (NEGATIVE)
[2017-10-16 01:41] LABS: ANION GAP 7.3 (8-16); CARBON DIOXIDE 29.7 mmol/L (21-32); CHLORIDE 105 mmol/L (98-107); CREATININE 0.6 mg/dL (0.6-1.3); GFR ARICAN-AMERICAN 147 mL/min (>90); GLUCOSE 158 mg/dL (74-106); SODIUM SERUM 138 mmol/L (136-145); UREA NITROGEN, BLOOD 12 mg/dL (7-18)
[2017-10-16 01:47] LABS: ALBUMIN 3.3 g/dL (3.4-5.0); ASPARTATE AMINOTRANSFERASE 15 U/L (15-37); LIPASE 142 U/L (73-393); TOTAL BILIRUBIN 0.1 mg/dL (0.0-1.0)
[2017-10-16 01:51] LABS: RBC,URINE 0-5 (RARE) /HPF (0-5); WBC,URINE 0-5 (RARE) /HPF (0-5)
[2017-10-16 02:23] VITALS: BP 119/75
--- NOTE | 2017-10-16 02:23 | NUR ---
Patient discharged with v/s stable. Written and verbal after care instructions given and explained. Patient alert, oriented and verbalized understanding of instructions. Ambulatory with steady gait. All questions addressed prior to discharge. ID band removed. Patient advised to follow up with PMD IN 2-3 DAYS. Rx of CIPROFLOxacin, zofran, omeprazole, and xanax given. Patient educated on indication of medication including possible reaction and side effects. Opportunity to ask questions provided and answered.
== END 2017-10-16 02:33 | disposition home or self-care (01) ==
LOC: MED 20:44
DX: K21.9 Gastro-esophageal reflux disease without esophagitis (principal); N39.0 Urinary tract infection, site not specified; J45.909 Unspecified asthma, uncomplicated; E11.9 Type 2 diabetes mellitus without complications
CPT/HCPCS: 36415; 80053; 81001; 82009; 83690; 85025; 96374; 99284; C9113

== ENCOUNTER 2018-03-18 23:35 | Emergency (ER) | payer OTHER ==
[~2018-03-18] VITALS: Ht 165.1 cm; Wt 80.3 kg
[2018-03-18 23:44] VITALS: BP 114/62
--- NOTE | 2018-03-18 23:48 | NUR ---
TO LOBBY, A/W BED, VSJose , WILTON, ERMRoshan NOTED
--- NOTE | 2018-03-19 02:15 | NUR ---
PATIENT PRESENTS TO ED WITH LEFT WRIST PAIN 8/10 X1 WK. PT STATES NO TRAUMA BUT HAS SEVERE PAIN. HOME MEDICATIONS NOT RELIVING PAIN. DENIES N/V/D; SKIN IS PINK/WARM/DRY; AAOX4 WITH EVEN AND STEADY GAIT; LUNGS CLEAR BL; HR EVEN AND REGULAR; PT DENIES ANY FEVER, CP, SOB, OR COUGH AT THIS TIME; PATIENT STATES PAIN OF 8/10 AT THIS TIME; VSS; PATIENT POSITIONED FOR COMFORT; HOB ELEVATED; BEDRAILS UP X2; BED DOWN. ER MD MADE AWARE OF PT STATUS. CONTINUE TO MONIOTOR.
--- NOTE | 2018-03-19 02:15 | NUR ---
PT TO ER BED 1
[2018-03-19] MEDS ORDERED: CYCLOBENZAPRINE 10 MG TAB PO ONE (03:35)
[2018-03-19] MEDS ORDERED: KETOROLAC 30 MG/ML VIAL IM ONE (03:35)
--- NOTE | 2018-03-19 03:40 | NUR ---
PT REFUSED FLEXERIL D/T TAKING ATIVAL EARLIER AND DID NOT FEEL COMFORTABLE. MEDICATION RETURNED TO PIX[facility]. DR SMITH INFORMED. VSS. CONTINUE TO MONITOR.
[2018-03-19 03:57] VITALS: BP 114/62
--- NOTE | 2018-03-19 03:57 | NUR ---
Patient discharged with v/s stable. Written and verbal after care instructions given and explained. Patient alert, oriented and verbalized understanding of instructions. Ambulatory with steady gait. All questions addressed prior to discharge. ID band removed. Patient advised to follow up with PMD. Rx of NORCO, FLEXERIL, IBUPROFEN given. Patient educated on indication of medication including possible reaction and side effects. Opportunity to ask questions provided and answered.
== END 2018-03-19 03:57 | disposition home or self-care (01) ==
LOC: MED 23:35
DX: M25.532 Pain in left wrist (principal); M54.5 Low back pain; M54.2 Cervicalgia; J45.909 Unspecified asthma, uncomplicated; E07.9 Disorder of thyroid, unspecified; Z79.899 Other long term (current) drug therapy; Z79.4 Long term (current) use of insulin
CPT/HCPCS: 29125; 72040; 72100; 73110; 96372; 99284; J1885

== ENCOUNTER 2018-05-03 17:09 | Emergency (ER) | payer OTHER ==
[~2018-05-03] VITALS: Ht 165.1 cm; Wt 74.6 kg
[2018-05-03 17:25] VITALS: BP 120/88
--- NOTE | 2018-05-03 17:30 | NUR ---
PT AMBULATES TO BED 4, REPORT GIVEN TO ABHIJIT OTERO
--- NOTE | 2018-05-03 17:30 | NUR ---
37O F TO ER FOR MED REFILL OF SYNTHROID. PT DENIES ANY OTHER MEDICAL C/O. AT THIS TIME. STATES BEING OUT OF MEDICATION FOR 2 DAYS
--- NOTE | 2018-05-03 18:02 | NUR ---
CHENCHO Lange evaluating patient at bedside.
[2018-05-03 18:14] VITALS: BP 128/89
--- NOTE | 2018-05-03 18:15 | NUR ---
Patient discharged with v/s stable. Written and verbal after care instructions given and explained. Patient alert, oriented and verbalized understanding of instructions. Ambulatory with steady gait. All questions addressed prior to discharge. ID band removed. Patient advised to follow up with PMD. Rx of SYNTHROID 175 MCG given. Patient educated on indication of medication including possible reaction and side effects. Opportunity to ask questions provided and answered.
== END 2018-05-03 18:15 | disposition home or self-care (01) ==
LOC: MED 17:09
DX: E03.9 Hypothyroidism, unspecified (principal); Z76.0 Encounter for issue of repeat prescription
CPT/HCPCS: 99283

== ENCOUNTER 2018-06-24 22:27 | Emergency (ER) | payer OTHER ==
[~2018-06-24] VITALS: Ht 165.1 cm; Wt 71.4 kg
[2018-06-24 22:30] VITALS: BP 127/87
--- NOTE | 2018-06-24 23:00 | NUR ---
37/F CAME IN ED, C/O L BIG TOE PAIN, X1 WEEK. PT REPORTS HAVING A PART OF INGROWN NAIL REMOVED IN A NAIL SALON LAST WEEK. L BIG TOE REDNESS AND SWELLING NOTED, TENDER TO TOUCH. +CMS. HX DM TYPE 1, ASTHMA, THYROID, ANXIETY
[2018-06-25] MEDS ORDERED: KETOROLAC 60 MG/2 ML VIAL IM ONE (00:25)
[2018-06-25] MEDS ORDERED: LORazepam 1 MG TAB PO ONE (00:25)
[2018-06-25 00:59] VITALS: BP 101/42
--- NOTE | 2018-06-25 01:00 | NUR ---
DC Patient discharged with v/s stable. Written and verbal after care instructions given and explained. Patient alert, oriented and verbalized understanding of instructions. Ambulatory with steady gait. All questions addressed prior to discharge. ID band removed. Patient advised to follow up with PMD. Rx of ATARAX, KEFLEX, NORCO given. Patient educated on indication of medication including possible reaction and side effects. Opportunity to ask questions provided and answered.
== END 2018-06-25 00:57 | disposition home or self-care (01) ==
LOC: MED 22:27
DX: L03.032 Cellulitis of left toe (principal); J45.909 Unspecified asthma, uncomplicated; E07.9 Disorder of thyroid, unspecified; E10.8 Type 1 diabetes mellitus with unspecified complications; Z79.899 Other long term (current) drug therapy; Z79.4 Long term (current) use of insulin
CPT/HCPCS: 96372; 99283; J1885

== ENCOUNTER 2020-11-07 00:11 | Emergency (ER) | payer OTHER ==
[~2020-11-07] VITALS: Ht 165.1 cm; Wt 90.7 kg
[2020-11-07 00:25] VITALS: BP 132/82
--- NOTE | 2020-11-07 00:25 | NUR ---
TO TENT AMBULATORY
--- NOTE | 2020-11-07 00:28 | NUR ---
SEEN AND EXAMINED BY ARMIDA WITH ORDERS, CARRIED OUT
[2020-11-07] MEDS ORDERED: ALBUTEROL SULFATE/IPRATROPIU 3 ML SOL IH ONE (00:35)
--- NOTE | 2020-11-07 01:05 | NUR ---
RT AT THE TENT GIVING BREATHING TREATMENT
[2020-11-07] MEDS ORDERED: methylPREDNISolone SS 40 MG in WATER STERILE 1 ML IM ONE (01:50)
--- NOTE | 2020-11-07 01:50 | NUR ---
MEDICATED PER ERMDS ORDER, TOLERATED WELL.
[2020-11-07] MEDS ORDERED: WATER STERILE 10 ML MC ONE (01:51)
[2020-11-07] MEDS ORDERED: methylPREDNISolone SS 40 MG/ML VIAL ONE (01:51)
--- NOTE | 2020-11-07 01:55 | NUR ---
RESULT BACK AND NOTED BY ERMD AND FOR D/C
[2020-11-07 02:28] VITALS: BP 119/79
--- NOTE | 2020-11-07 02:28 | NUR ---
Patient discharged with v/s stable. Written and verbal after care instructions given and explained. Patient alert, oriented and verbalized understanding of instructions. Ambulatory with steady gait. All questions addressed prior to discharge. ID band removed. Patient advised to follow up with PMD. Rx of PREDNISONE,ALBUTERO given. Patient educated on indication of medication including possible reaction and side effects. Opportunity to ask questions provided and answered.
== END 2020-11-07 02:28 | disposition home or self-care (01) ==
LOC: MED 00:11
DX: J45.901 Unspecified asthma with (acute) exacerbation (principal)
CPT/HCPCS: 71045; 93005; 94640; 96372; 99283; J2920

== ENCOUNTER 2021-02-21 19:14 | Emergency (ER) | payer OTHER ==
[~2021-02-21] VITALS: Ht 167.6 cm; Wt 90.3 kg
[2021-02-21 19:27] VITALS: BP 120/78
--- NOTE | 2021-02-21 19:29 | NUR ---
To Ed bed 08
--- NOTE | 2021-02-21 19:37 | NUR ---
KENYA EMT AT BEDSIDE PERFORMING EKG.
--- NOTE | 2021-02-21 19:54 | NUR ---
PATIENT BIB SELF FOR C/O 8/10 CHEST PAIN, LOWER ABDOMINAL PAIN, LOWER BACK PAIN X 1 DAY. A & O X4. PATIENT STATES SHE ATE DINNER LAST NIGHT WHEN IT BEGAN. PATIENT ALSO REPORTS "IT FELT LIKE ANXIETY TOO." PATIENTS SPEECH IS CLEAR. AMBULATORY. PATIENT DENIES N/V/D, FEVER, CHILLS. VSS. PATIENT DENIES SOB. EKG SINUS RHYTHM 66. PATIENT CONNECTED TO MONITOR AND PLACED IN GOWN. HOB ELEVATED FOR COMFORT. SEE COMPLETE ASSESSMENT FOR FURTHER DETAILS. MED HX: DM, ASTHMA ALLERGIES: NKA
[2021-02-21] MEDS ORDERED: DICYCLOMINE HCL LIQUID 10 MG/5 ML UDC PO ONE (20:20)
[2021-02-21] MEDS ORDERED: FAMOTIDINE 20 MG TAB PO ONE (20:20)
--- NOTE | 2021-02-21 20:30 | NUR ---
ULTRASOUND AT BEDSIDE.
--- NOTE | 2021-02-21 20:47 | NUR ---
PATIENT AMBULATED TO RESTROOM WITH STEADY GAIT TO COLLECT URINE SAMPLE.
[2021-02-21 20:50] LABS: BASOPHILS % (AUTO) 0.7 % (0.0-2.0); EOSINOPHILS # (AUTO) 0.3 K/uL (0-0.4); EOSINOPHILS % (AUTO) 4.7 % (0.0-4.0); HEMATOCRIT 34.6 % (36-48); HEMOGLOBIN 11.4 g/dL (12.0-16.0); LYMPHOCYTES % (AUTO) 31.7 % (20.5-51.1); MEAN CORPUSCULAR HEMOGLOBIN 28 pg (27-31); MEAN CORPUSCULAR HGB CONC 33 g/dL (33-37); MEAN CORPUSCULAR VOLUME 83.7 fL (80-94); MONOCYTES # (AUTO) 0.5 K/uL (0.8-1.0); MONOCYTES % (AUTO) 7.4 % (1.7-9.3); NEUTROPHILS # (AUTO) 3.4 K/uL (1.8-7.7); NEUTROPHILS % (AUTO) 55.5 % (42.2-75.2); PLATELET COUNT (AUTO) 210 K/uL (140-450); RED BLOOD CELL COUNT(AUTO) 4.14 MIL/uL (4.20-5.40); RED CELL DISTRIBUTION WIDTH 15.8 % (11.6-13.7); WHITE BLOOD COUNT (AUTO) 6.2 K/uL (4.8-10.8)
[2021-02-21 20:59] LABS: APPEARANCE,URINE CLEAR (CLEAR); BILIRUBIN,URINE NEGATIVE (NEGATIVE); BLOOD, URINE 2+ (NEGATIVE); LEUKOCYTE ESTERASE ,URINE NEGATIVE (NEGATIVE); NITRITE, URINE NEGATIVE (NEGATIVE); UGLUCOSE NEGATIVE (NEGATIVE)
[2021-02-21 21:13] LABS: COLOR,URINE STRAW (YELLOW)
[2021-02-21 21:15] LABS: WBC,URINE 0-5 /HPF (0-5)
[2021-02-21 21:28] LABS: ALBUMIN 3.3 g/dL (3.4-5.0); CARBON DIOXIDE 29.5 mmol/L (21-32); CREATININE 0.6 mg/dL (0.6-1.3); POTASSIUM 3.5 mmol/L (3.5-5.1); TOTAL BILIRUBIN 0.2 mg/dL (0.0-1.0)
[2021-02-21] MEDS ORDERED: FAMO-92 PO (21:32)
[2021-02-21] MEDS ORDERED: ONDA-24 SL (21:32)
[2021-02-21 21:41] VITALS: BP 127/57
--- NOTE | 2021-02-21 21:41 | NUR ---
Patient discharged with v/s stable. Written and verbal after care instructions given and explained. Patient alert, oriented and verbalized understanding of instructions. Ambulatory with steady gait. All questions addressed prior to discharge. ID band removed. Patient advised to follow up with PMD. Rx of PEPCID AND ZOFRAN given. Patient educated on indication of medication including possible reaction and side effects. Opportunity to ask questions provided and answered.
== END 2021-02-21 21:41 | disposition home or self-care (01) ==
LOC: MED 19:14
DX: R10.13 Epigastric pain (principal); J45.909 Unspecified asthma, uncomplicated; E11.9 Type 2 diabetes mellitus without complications; E07.9 Disorder of thyroid, unspecified; Z79.899 Other long term (current) drug therapy
CPT/HCPCS: 36415; 76705; 80053; 81001; 83690; 84702; 85025; 87086; 93005; 99285

== ENCOUNTER 2021-07-21 04:44 | Emergency (ER) | payer OTHER ==
[~2021-07-21] VITALS: Ht 165.1 cm; Wt 85.7 kg
[~2021-07-21 04:44] MED LIST changes: +FAMO-92 PO; +ONDA-24 SL
--- NOTE | 2021-07-21 04:54 | NUR ---
PT AMBULATED TO BED 3
--- NOTE | 2021-07-21 05:00 | NUR ---
AMBULATED TO BED 3 FROM LOBBY WITH C/O CP X 3 HOURS AND C/O ANXIETY. PT SPEAKING QUICKLY, POINTS TO LEFT CHEST WHEN ASKED WHERE PAIN IS. SKIN IS WARM AND DRY. PMH : DM, ANXIETY, ASTHMA, THYROID NKDA
[2021-07-21 05:01] VITALS: BP 162/108
[2021-07-21] MEDS ORDERED: DICYCLOMINE HCL LIQUID 20 MG, ALUMINUM HYD/MAG/SIMETHICONE 30 ML, LIDOCAINE VISCOUS 2% ... PO ONE ×3 (06:05)
[2021-07-21] MEDS ORDERED: ALUMINUM HYD/MAG/SIMETHICONE 30 ML UDC ONE (06:14)
[2021-07-21] MEDS ORDERED: DICYCLOMINE HCL LIQUID 10 MG/5 ML UDC ONE (06:14)
[2021-07-21 06:15] LABS: BASOPHILS % (AUTO) 0.6 % (0.0-2.0); EOSINOPHILS # (AUTO) 0.6 K/uL (0-0.4); EOSINOPHILS % (AUTO) 9.2 % (0.0-4.0); HEMATOCRIT 34.6 % (36-48); HEMOGLOBIN 11.4 g/dL (12.0-16.0); LYMPHOCYTES # (AUTO) 1.8 K/uL (2.5-16.5); MEAN CORPUSCULAR HEMOGLOBIN 27 pg (27-31); MEAN CORPUSCULAR HGB CONC 33 g/dL (33-37); MEAN CORPUSCULAR VOLUME 83.4 fL (80-94); MONOCYTES # (AUTO) 0.5 K/uL (0.8-1.0); NEUTROPHILS # (AUTO) 3.9 K/uL (1.8-7.7); NEUTROPHILS % (AUTO) 57.2 % (42.2-75.2); PLATELET COUNT (AUTO) 220 K/uL (140-450); RED BLOOD CELL COUNT(AUTO) 4.15 MIL/uL (4.20-5.40); RED CELL DISTRIBUTION WIDTH 14.8 % (11.6-13.7); WHITE BLOOD COUNT (AUTO) 6.8 K/uL (4.8-10.8)
[2021-07-21 06:33] LABS: CARBON DIOXIDE 26.9 mmol/L (21-32); CREATININE 0.6 mg/dL (0.6-1.3); POTASSIUM 3.9 mmol/L (3.5-5.1)
--- NOTE | 2021-07-21 07:15 | NUR ---
REPORT TO ABHIJIT AGUILAR
--- NOTE | 2021-07-21 07:50 | NUR ---
Pt awake and alert. A&Ox4. GCS 15. Pt c/o central chest pain radiating to left side of chest. Pain level 6/10, "feels like gas" VSS. Will continue to monitor.
[2021-07-21 08:11] VITALS: BP 113/74
== END 2021-07-21 08:11 | disposition home or self-care (01) ==
LOC: MED 04:44
DX: R07.89 Other chest pain (principal); E10.65 Type 1 diabetes mellitus with hyperglycemia; J45.909 Unspecified asthma, uncomplicated; E07.9 Disorder of thyroid, unspecified; Z79.4 Long term (current) use of insulin; Z79.899 Other long term (current) drug therapy
CPT/HCPCS: 36415; 71045; 80048; 83690; 84484; 85025; 93005; 99285; Q0092